=== PATIENT | male | born 1945 | race Caucasian/White ===

== ENCOUNTER 2018-10-07 09:01 | Day surgery (SDC) | payer MEDICARE ==
[~2018-10-07] VITALS: Ht 177.8 cm; Wt 94.9 kg
[~2018-10-07 09:01] MED LIST: ACTOPLUS; AMLO10 PO; ASPI81EC PO; ATOR40TA PO; B Complex #11 EACH PO; BASAGLAR K100 UNIT/1 SC; CARV3.125 PO; CHOL10002 PO; CLOP75 PO; EZET10-40 PO; FOLI1 PO; FURO20 PO; GLIP10 PO; INSDET100 SQ; LO-DOSE ASPIRIN81 MG PO; METF850 PO; Metformin HCl850 MG PO; POTCHL20ER PO; Prinivil10 MG PO; SILD50TA PO; TAMS.4ER PO
--- NOTE | 2018-10-07 10:09 | NUR ---
10/07/18 1009 Rosa Cooley PT RESTING IN PREOP. TEACHING PROVIDED AT THIS TIME. CALL LIGHT WITHIN REACH AND LIGHTS DIM.
== END 2018-10-07 11:26 | disposition home or self-care (01) ==
LOC: ORSCSDS 09:01
PROVIDERS: Surgery
PROC: 0DJD8ZZ Inspection of Lower Intestinal Tract, Via Natural or Artificial Opening Endoscopic (ICD-10-PCS; principal; 2018-10-07 10:15)
DX: Z12.11 Encounter for screening for malignant neoplasm of colon (principal); K57.30 Diverticulosis of large intestine without perforation or abscess without bleeding; Z86.010 Personal history of colon polyps; E78.5 Hyperlipidemia, unspecified; I10 Essential (primary) hypertension; J44.9 Chronic obstructive pulmonary disease, unspecified; E11.9 Type 2 diabetes mellitus without complications; I25.2 Old myocardial infarction; Z79.01 Long term (current) use of anticoagulants; Z79.84 Long term (current) use of oral hypoglycemic drugs; Z79.899 Other long term (current) drug therapy
CPT/HCPCS: 82947; J2704; J3010; J7120

== ENCOUNTER → 2020-03-09 | Outpatient (CLI) | payer MEDICARE | LOC: LAB SHORT 08:10 → PLD 08:10 | DX: D03.61 Melanoma in situ of right upper limb, including shoulder (principal) | CPT/HCPCS: 88305 ==

== ENCOUNTER → 2020-04-27 | Outpatient (CLI) | payer MEDICARE | END | disposition home or self-care (01) | LOC: LAB SHORT 12:14 → PLD 12:14 | DX: D03.61 Melanoma in situ of right upper limb, including shoulder (principal) | CPT/HCPCS: 88305 ==